=== PATIENT | female | born 1950 | race Caucasian/White ===

== ENCOUNTER 2017-07-18 05:11 | Outpatient (CLI) | payer MEDICARE, MEDICAID ==
[~2017-07-18 05:11] MED LIST: ATOR40TA PO; CEPH500C5 PO; INSU100I13 SQ; LANS15CA47 PO; LANTUS SQ; LIRA0.6P SQ; MICO57CR2 TP; PRED20TA PO; SYN0.0125T PO
== END 2017-07-18 23:59 | disposition home or self-care (01) ==
LOC: DIABETIC 05:11
PROVIDERS: ATTEND Surgery
DX: E11.9 Type 2 diabetes mellitus without complications (principal); E66.01 Morbid (severe) obesity due to excess calories; I10 Essential (primary) hypertension; G47.30 Sleep apnea, unspecified; Z85.3 Personal history of malignant neoplasm of breast
CPT/HCPCS: 97802

== ENCOUNTER 2019-03-03 17:01 | Emergency (ER) | payer MEDICARE, MEDICAID ==
[~2019-03-03] VITALS: Ht 157.5 cm; Wt 67.3 kg
[~2019-03-03 17:01] MED LIST changes: -CEPH500C5 PO
[2019-03-03 18:08] LABS: BASOPHILS % (AUTO) 0.7 % (0-1); EOSINOPHILS # (AUTO) 0.1 X10'3 (0-0.9); EOSINOPHILS % (AUTO) 2.6 % (0-6); HEMOGLOBIN 13.1 g/dl (12.0-16.0); LYMPHOCYTES # (AUTO) 1.8 X10'3 (1.1-4.8); LYMPHOCYTES % (AUTO) 35.9 % (21-51); MEAN CORPUSCULAR HEMOGLOBIN 29.3 PG (27.0-31.0); MEAN CORPUSCULAR HGB CONC 34.6 g/dL (33.0-36.5); MEAN CORPUSCULAR VOLUME 84.9 FL (78-98); MEAN PLATELET VOLUME 8.7 FL (7.4-10.4); MONOCYTES # (AUTO) 0.3 X10'3 (0-0.9); MONOCYTES % (AUTO) 6.4 % (2-12); NEUTROPHILS # (AUTO) 2.7 X10'3 (1.8-7.7); NEUTROPHILS % (AUTO) 54.4 % (42-75); PLATELET COUNT 121 X10'3 (140-440); RED BLOOD COUNT 4.47 X10'6 (4.20-5.60); RED CELL DISTRIBUTION WIDTH 12.9 % (11.5-14.5); WHITE BLOOD COUNT 4.9 X10'3 (4.5-11.0)
[2019-03-03 18:27] LABS: ALANINE AMINOTRANSFERASE 18 U/L (12-78); ALBUMIN 3.6 G/DL (3.4-5.0); ALBUMIN/GLOBULIN RATIO 1.2 (1.1-1.5); ALKALINE PHOSPHATASE 81 IU/L (46-116); ANION GAP 7 (8-16); ASPARTATE AMINO TRANSFERASE 20 U/L (10-37); BILIRUBIN,TOTAL 0.7 MG/DL (0.1-1.0); BLOOD UREA NITROGEN 15 MG/DL (7-18); CALCIUM 8.4 MG/DL (8.5-10.1); CHLORIDE 108 MMOL/L (99-107); GLUCOSE 130 MG/DL (70-104); POTASSIUM 3.5 MMOL/L (3.5-5.1); SODIUM 142 MMOL/L (135-145); TOTAL CARBON DIOXIDE 27.2 MMOL/L (24-32); TOTAL PROTEIN 6.7 G/DL (6.4-8.2); eGFR > 90 ML/MIN
[2019-03-03 18:55] LABS: CLARITY,URINE CLEAR (Clear); COLOR,URINE YELLOW (Yellow); GLUCOSE, URINE NEGATIVE (Neg); KETONES,URINE NEGATIVE (Neg); LEUKOCYTE ESTERASE ,URINE TRACE (Neg); NITRITES, URINE NEGATIVE (Neg); OCCULT BLOOD,URINE NEGATIVE (Neg); PROTEIN,URINE NEGATIVE (Neg); UROBILINOGEN,URINE 0.2 E.U/dL (0.2-1.0)
[2019-03-03 19:01] LABS: UA COLLECTION TYPE CLN CATCH MIDSTREAM
[2019-03-03 19:02] LABS: BACTERIA,URINE FEW /HPF (Neg); RBC,URINE NONE SEEN /HPF (0-2); SQUAMOUS EPITHELIAL CELL,UR FEW /LPF (FEW); WBC,URINE 0-4 /HPF (0-4)
--- NOTE | 2019-03-03 19:06 | NUR ---
PATIENT STATES THAT SHE HAS SOME POSTERIOR LEFT SHOULDER PAIN THAT FEELS BETTER WHEN IT IS MASSAGED.
--- NOTE | 2019-03-03 19:48 | NUR ---
DR PEREZ DISCUSSED DISCHARGE WITH PATIENT IN MY PRESCENSE: ALL TESTS, ETC WNL. PATIENT WILL FOLLOW UP WITH RAMON LESTER AND DR AMARO FOR FURTHER WORKUP. STATED THAT HE HAD SYMPTOMS SIMILAR TO HERS AND "THEY TOOK MY GALLBLADDER OUT AND THEN i HAD A HEART ATTACK."
[2019-03-03 19:51] VITALS: BP 148/72
== END 2019-03-03 19:55 | disposition home or self-care (01) ==
LOC: ER 17:01
DX: R07.89 Other chest pain (principal); I10 Essential (primary) hypertension; K21.9 Gastro-esophageal reflux disease without esophagitis; E11.42 Type 2 diabetes mellitus with diabetic polyneuropathy; Z85.3 Personal history of malignant neoplasm of breast; Z90.710 Acquired absence of both cervix and uterus; Z90.89 Acquired absence of other organs; Z88.2 Allergy status to sulfonamides; Z79.4 Long term (current) use of insulin; Z79.899 Other long term (current) drug therapy
CPT/HCPCS: 36415; 71045; 80053; 81001; 83735; 83880; 84484; 85025; 87088; 93005; 99284

== ENCOUNTER 2019-07-09 13:11 | Outpatient (CLI) | payer MEDICARE, MEDICAID ==
[2019-07-09 15:02] LABS: BASOPHILS % (AUTO) 0.6 % (0-1); EOSINOPHILS # (AUTO) 0.2 X10'3 (0-0.9); EOSINOPHILS % (AUTO) 3.1 % (0-6); HEMATOCRIT 41.5 % (35.0-45.0); LYMPHOCYTES % (AUTO) 38.1 % (21-51); MEAN CORPUSCULAR HGB CONC 33.8 g/dL (33.0-36.5); MEAN PLATELET VOLUME 9.2 FL (7.4-10.4); MONOCYTES # (AUTO) 0.3 X10'3 (0-0.9); MONOCYTES % (AUTO) 5.8 % (2-12); NEUTROPHILS # (AUTO) 2.8 X10'3 (1.8-7.7); NEUTROPHILS % (AUTO) 52.4 % (42-75); PLATELET COUNT 141 X10'3 (140-440); WHITE BLOOD COUNT 5.4 X10'3 (4.5-11.0)
[2019-07-09 15:24] LABS: % IRON SATURATION 24 % (11-46); IRON 57 UG/DL (49-151); TOTAL IRON BINDING CAPACITY 242 UG/DL (259-388)
[2019-07-09 15:34] LABS: ALANINE AMINOTRANSFERASE 19 U/L (12-78); ALBUMIN/GLOBULIN RATIO 1.3 (1.1-1.5); ALKALINE PHOSPHATASE 76 IU/L (46-116); ANION GAP 6 (8-16); ASPARTATE AMINO TRANSFERASE 25 U/L (10-37); BILIRUBIN,TOTAL 0.6 MG/DL (0.1-1.0); BLOOD UREA NITROGEN 11 MG/DL (7-18); BUN/CREATININE RATIO 25.6 (6.6-38.0); CALCIUM 8.8 MG/DL (8.5-10.1); CHLORIDE 106 MMOL/L (99-107); CHOL/HDL RATIO 4.6 (0.00-4.99); CHOLESTEROL 244 MG/DL (0-200); CREATININE 0.43 MG/DL (0.40-0.90); GLUCOSE 90 MG/DL (70-104); HDL CHOLESTEROL 53 MG/DL (35-60); LDL CHOLESTEROL 165 MG/DL (50-100); POTASSIUM 3.9 MMOL/L (3.5-5.1); SODIUM 142 MMOL/L (135-145); TOTAL CARBON DIOXIDE 29.7 MMOL/L (24-32); TOTAL PROTEIN 7.1 G/DL (6.4-8.2); TRIGLYCERIDES 149 MG/DL (20-135); eGFR > 90 ML/MIN
[2019-07-10] MEDS ORDERED: MULT-1085 PO (06:22)
[2019-07-10] MEDS ORDERED: OMEP40CA13 (06:22)
[2019-07-10] MEDS ORDERED: BROM3DRO (06:22)
[2019-07-10] MEDS ORDERED: LEVO150T8 (06:22)
[2019-07-10] MEDS ORDERED: ASPI-1130 (06:22)
[2019-07-11 08:10] LABS: TRANSFERRIN 197 mg/dL (200-370); VITAMIN D, 25-HYDROXY 24.4 ng/mL (30.0-100.0)
== END 2019-07-09 23:59 | disposition home or self-care (01) ==
LOC: LAB 13:11
PROVIDERS: ATTEND Surgery
DX: Z12.31 Encounter for screening mammogram for malignant neoplasm of breast (principal); K90.9 Intestinal malabsorption, unspecified; D52.9 Folate deficiency anemia, unspecified; E51.9 Thiamine deficiency, unspecified; D51.0 Vitamin B12 deficiency anemia due to intrinsic factor deficiency; E61.1 Iron deficiency; E79.0 Hyperuricemia without signs of inflammatory arthritis and tophaceous disease; E78.5 Hyperlipidemia, unspecified; E55.9 Vitamin D deficiency, unspecified; R73.09 Other abnormal glucose; Z13.0 Encounter for screening for diseases of the blood and blood-forming organs and certain disorders involving the immune mechanism; Z13.220 Encounter for screening for lipoid disorders; Z98.84 Bariatric surgery status; Z13.1 Encounter for screening for diabetes mellitus
CPT/HCPCS: 36415; 80053; 80061; 82306; 82607; 82746; 83540; 83550; 84466; 85025

== ENCOUNTER 2019-07-10 05:53 | Day surgery (SDC) | payer MEDICARE, MEDICAID ==
[2019-07-09 15:15] LABS: PARTIAL THROMBOPLASTIN TIME 26 SECONDS (22-32)
[~2019-07-10] VITALS: Ht 157.5 cm; Wt 67.1 kg
[2019-07-10] VITALS (11 sets, daily range): BP systolic 148–178; BP diastolic 63–78
[2019-07-10] MEDS ORDERED: diphenhydrAMINE 25mg capsule PO PRN (06:10)
[2019-07-10] MEDS ORDERED: normal saline 1000ml 1,000 ML IV SCH (06:10)
[2019-07-10] MEDS ORDERED: LORazepam 0.5 MG tablet PO PRN (06:10)
--- NOTE | 2019-07-10 06:16 | NUR ---
Attempted to call MD. [facility] placed me on hold, then line disconnected. Attempted second call back, waiting to speak with MD.
[2019-07-10] MEDS ORDERED: MULT-1085 PO (06:22)
[2019-07-10] MEDS ORDERED: OMEP40CA13 (06:22)
[2019-07-10] MEDS ORDERED: LEVO150T8 (06:22)
[2019-07-10] MEDS ORDERED: BROM3DRO (06:22)
[2019-07-10] MEDS ORDERED: ASPI-1130 (06:22)
--- NOTE | 2019-07-10 07:10 | NUR ---
returned call, informed him of pt bilateral mastectomy, pt concerns of prior lymphedema. states "we will go in through the groin, no radial approach".
[2019-07-10] MEDS ORDERED: LIDOcaine 1% (10mg/ml)w/preservative injection 20ml MDV ONE (07:34)
[2019-07-10] MEDS ORDERED: heparin 1,000unit/ml 10ml vial 10 ML ONE (07:34)
[2019-07-10] MEDS ORDERED: nitroGLYCERIN-Tridil 50MG/D5W 250 ML IV ONE (07:34)
[2019-07-10] MEDS ORDERED: verapamil 2.5 mg/ml inj IV ONE (07:34)
[2019-07-10] MEDS ORDERED: midazolam 2 mg/2 ml injection ONE (07:35)
[2019-07-10] MEDS ORDERED: iohexol 350MG/ML 100ml bottle IV ONE (07:35)
[2019-07-10] MEDS ORDERED: iohexol 350 MG/ML 50ML vial IV ONE (07:35)
[2019-07-10] MEDS ORDERED: fentaNYL/PF 50MCG/1 ML 2ML syringe ONE (07:36)
--- NOTE | 2019-07-10 08:56 | NUR ---
MD Rico at bedside. assessed groin, ordered to hold pressure to rt groin for 15 min, if indications of bleeding are apparent a fem stop may be placed. MD ordered Tylenol for pain. After 15 min of pressure rt groin appears soft, no hematoma, dressing remains CD&I. Pt vs are stable as charted. pt notes pain on her rt groin, 2/10 in intensity. Pain medication being administered as ordered.
[2019-07-10] MEDS ORDERED: acetaminophen 325mg tablet PO PRN (09:30)
--- NOTE | 2019-07-10 09:30 | NUR ---
Reassessed pt pain, pt verbalized 0/10 pian. Pt resting comfortably, will continue to monitor.
--- NOTE | 2019-07-10 10:00 | NUR ---
pt ate 100% of breakfast tray and 250ml fluid
--- NOTE | 2019-07-10 11:00 | NUR ---
pt complaint of pain in her lower back radiating from right to left side. Drsg to rt groin remains CD&I, no s/s of bleeding, surrounding tissue soft. Pt was placed on bedpan, voided x1. Pt notes mild relief of pain with adjustment of position. Will continue to monitor.
--- NOTE | 2019-07-10 12:10 | NUR ---
pt ate 50% of additional lunch tray, 250ml fluids. Will continue to monitor.
--- NOTE | 2019-07-10 12:40 | NUR ---
pt requesting to sit up in bed. 30% lift in the head of the bed was provided. pt groin site is stable, Drsg CD&I, vs stable as charted. will continue to monitor.
== END 2019-07-10 14:00 | disposition home or self-care (01) ==
LOC: SSTAY O 05:53
PROVIDERS: ATTEND Internal Medicine Cardiovascular Disease
DX: R94.39 Abnormal result of other cardiovascular function study (principal); I25.119 Atherosclerotic heart disease of native coronary artery with unspecified angina pectoris; E78.5 Hyperlipidemia, unspecified; G47.33 Obstructive sleep apnea (adult) (pediatric); E03.9 Hypothyroidism, unspecified; F32.9 Major depressive disorder, single episode, unspecified; E11.40 Type 2 diabetes mellitus with diabetic neuropathy, unspecified; K21.9 Gastro-esophageal reflux disease without esophagitis; Z85.3 Personal history of malignant neoplasm of breast; Z79.82 Long term (current) use of aspirin; Z79.899 Other long term (current) drug therapy; Z98.890 Other specified postprocedural states; Z88.8 Allergy status to other drugs, medicaments and biological substances; Z91.09 Other allergy status, other than to drugs and biological substances; Z79.01 Long term (current) use of anticoagulants
CPT/HCPCS: 36415; 85610; 85730; 93005; 93458; 99152; 99153; C1769; C1894; J1644; J2001; J2250; J3010; J7030; Q0163; Q9967; A4620; A5120; A6258; C1760; J3490

== ENCOUNTER 2020-01-17 07:09 | Outpatient (CLI) | payer MEDICARE, MEDICAID ==
[2020-01-17] VITALS (22 sets, daily range): BP systolic 125–174; BP diastolic 66–104
[~2020-01-17 07:09] MED LIST changes: +ASPI-1130; -ATOR40TA PO; +BROM3DRO; -INSU100I13 SQ; -LANS15CA47 PO; -LANTUS SQ; +LEVO150T8; -LIRA0.6P SQ; -MICO57CR2 TP; +MULT-1085 PO; +OMEP40CA13; -PRED20TA PO; -SYN0.0125T PO
== END 2020-01-17 23:59 | disposition home or self-care (01) ==
LOC: CARD DIAG 07:09
PROVIDERS: ATTEND Internal Medicine Cardiovascular Disease
DX: R42 Dizziness and giddiness (principal)
CPT/HCPCS: 93660

== ENCOUNTER 2020-04-25 06:31 | Emergency (ER) | payer MEDICARE, MEDICAID ==
[~2020-04-25] VITALS: Ht 152.4 cm; Wt 69.0 kg
[~2020-04-25 06:31] MED LIST changes: -ASPI-1130; +ASPI-1397
[2020-04-25 07:33] VITALS: BP 155/57
[2020-04-25 07:40] LABS: BASOPHILS % (AUTO) 0.5 % (0-1); EOSINOPHILS # (AUTO) 0.2 X10'3 (0-0.9); EOSINOPHILS % (AUTO) 4.6 % (0-6); HEMATOCRIT 38.4 % (35.0-45.0); HEMOGLOBIN 12.8 g/dl (12.0-16.0); LYMPHOCYTES # (AUTO) 1.5 X10'3 (1.1-4.8); LYMPHOCYTES % (AUTO) 37.7 % (21-51); MEAN CORPUSCULAR HGB CONC 33.4 g/dL (33.0-36.5); MEAN PLATELET VOLUME 8.6 FL (7.4-10.4); MONOCYTES # (AUTO) 0.3 X10'3 (0-0.9); MONOCYTES % (AUTO) 7.9 % (2-12); NEUTROPHILS % (AUTO) 49.3 % (42-75); PLATELET COUNT 118 X10'3 (140-440); RED BLOOD COUNT 4.57 X10'6 (4.20-5.60); RED CELL DISTRIBUTION WIDTH 13.5 % (11.5-14.5)
[2020-04-25 07:53] LABS: ALANINE AMINOTRANSFERASE 16 U/L (12-78); ALBUMIN 3.5 G/DL (3.4-5.0); ALBUMIN/GLOBULIN RATIO 1.1 (1.1-1.5); ALKALINE PHOSPHATASE 79 IU/L (46-116); ANION GAP 3 (8-16); ASPARTATE AMINO TRANSFERASE 19 U/L (10-37); BILIRUBIN,TOTAL 0.6 MG/DL (0.1-1.0); BLOOD UREA NITROGEN 9 MG/DL (7-18); CALCIUM 8.3 MG/DL (8.5-10.1); CHLORIDE 106 MMOL/L (99-107); GLUCOSE 115 MG/DL (70-104); POTASSIUM 3.8 MMOL/L (3.5-5.1); SODIUM 138 MMOL/L (135-145); TOTAL CARBON DIOXIDE 29.1 MMOL/L (24-32); TOTAL PROTEIN 6.6 G/DL (6.4-8.2); eGFR > 90 ML/MIN
== END 2020-04-25 08:28 | disposition home or self-care (01) ==
LOC: ER 06:31
DX: R11.0 Nausea (principal); R53.83 Other fatigue; R06.02 Shortness of breath; R60.9 Edema, unspecified; E11.42 Type 2 diabetes mellitus with diabetic polyneuropathy; I48.91 Unspecified atrial fibrillation; I25.10 Atherosclerotic heart disease of native coronary artery without angina pectoris; E78.00 Pure hypercholesterolemia, unspecified; I10 Essential (primary) hypertension; K21.9 Gastro-esophageal reflux disease without esophagitis; E03.9 Hypothyroidism, unspecified; Z85.3 Personal history of malignant neoplasm of breast; Z90.710 Acquired absence of both cervix and uterus; Z90.89 Acquired absence of other organs; Z98.890 Other specified postprocedural states; Z88.2 Allergy status to sulfonamides; Z79.899 Other long term (current) drug therapy
CPT/HCPCS: 36415; 71045; 80053; 83880; 85025; 93005; 99285

== ENCOUNTER 2022-07-06 07:54 | Day surgery (SDC) | payer MEDICARE, MEDICAID ==
[2022-07-05 09:38] LABS: BASOPHILS % (AUTO) 0.7 % (0-1); EOSINOPHILS # (AUTO) 0.2 X10'3 (0-0.9); EOSINOPHILS % (AUTO) 4.1 % (0-6); HEMATOCRIT 41.7 % (35.0-45.0); HEMOGLOBIN 13.7 g/dl (12.0-16.0); LYMPHOCYTES # (AUTO) 1.7 X10'3 (1.1-4.8); LYMPHOCYTES % (AUTO) 33.3 % (21-51); MEAN CORPUSCULAR HEMOGLOBIN 27.9 PG (27.0-31.0); MEAN CORPUSCULAR HGB CONC 32.7 g/dL (33.0-36.5); MEAN CORPUSCULAR VOLUME 85.1 FL (78-98); MEAN PLATELET VOLUME 8.8 FL (7.4-10.4); MONOCYTES # (AUTO) 0.4 X10'3 (0-0.9); MONOCYTES % (AUTO) 8.2 % (2-12); NEUTROPHILS # (AUTO) 2.7 X10'3 (1.8-7.7); NEUTROPHILS % (AUTO) 53.7 % (42-75); PLATELET COUNT 152 X10'3 (140-440); RED CELL DISTRIBUTION WIDTH 13.7 % (11.5-14.5)
[2022-07-05 10:29] LABS: ALBUMIN 3.5 G/DL (3.4-5.0); ANION GAP 10 (8-16); BLOOD UREA NITROGEN 8 MG/DL (7-18); BUN/CREATININE RATIO 14.8 (6.6-38.0); CALCIUM 8.5 MG/DL (8.5-10.1); CHLORIDE 104 MMOL/L (99-107); CREATININE 0.54 MG/DL (0.40-0.90); GLUCOSE 107 MG/DL (70-104); POTASSIUM 4.1 MMOL/L (3.5-5.1); SODIUM 141 MMOL/L (135-145); TOTAL CARBON DIOXIDE 26.7 MMOL/L (24-32); eGFR > 90 ML/MIN
[~2022-07-06] VITALS: Ht 157.5 cm; Wt 76.1 kg
[~2022-07-06 07:54] MED LIST changes: -OMEP40CA13; +OMEP40CA21
[2022-07-06 08:09] VITALS: BP 145/80
[2022-07-06] MEDS ORDERED: normal saline 1000ml 1,000 ML IV SCH (08:10)
[2022-07-06] MEDS ORDERED: amiodarone 150mg/dext, iso-os 100 ML IV ONE (08:10)
[2022-07-06] MEDS ORDERED: LORazepam 0.5 MG tablet PO ONE (08:10)
[2022-07-06] MEDS ORDERED: morphine 10mg/ml inj. IV ONE (08:10)
[2022-07-06] MEDS ORDERED: atropine 0.1mg/ml 10ml syringe IV ONE (08:10)
[2022-07-06] MEDS ORDERED: diphenhydrAMINE 25mg capsule PO ONE (08:10)
[2022-07-06] MEDS ORDERED: MIDAZolam 1mg/ml 10ml vial IV ONE (08:10)
[2022-07-06] MEDS ORDERED: PANT20TA18 PO (09:12)
[2022-07-06] MEDS ORDERED: THYR90TA PO (09:13)
[2022-07-06] MEDS ORDERED: SOTA80TA73 PO (09:13)
[2022-07-06] MEDS ORDERED: DABI150C PO (09:14)
--- NOTE | 2022-07-06 10:00 | NUR ---
Cardioversion cancelled. Patient in normal sinus rhythm. Dr. Rico saw patient bedside and made changes to medications. New prescriptions phoned into [facility] and patient educated on new medication dosages/schedule. Patient to follow up in 1 week for EKG at Dr. Rico's office.
== END 2022-07-06 10:00 | disposition home or self-care (01) ==
LOC: SSTAY O 07:54
PROVIDERS: ATTEND Internal Medicine Cardiovascular Disease
DX: I48.91 Unspecified atrial fibrillation (principal); Z53.8 Procedure and treatment not carried out for other reasons; Z88.2 Allergy status to sulfonamides
CPT/HCPCS: 36415; 80048; 85025; 85610; A4620; J7030

== ENCOUNTER 2022-08-04 12:24 | Observation (INO) | payer MEDICARE, OTHER, MEDICAID ==
[~2022-08-04] VITALS: Ht 157.5 cm; Wt 75.3 kg
[2022-08-04] VITALS (16 sets, daily range): BP systolic 146–181; BP diastolic 61–76
[~2022-08-04 12:24] MED LIST changes: +AMIO200T61 PO; -ASPI-1397; -BROM3DRO; +CETI10TA14 PO; +CHOL20003 PO; +DABI150C PO; -LEVO150T8; +METO-395 PO; -MULT-1085 PO; -OMEP40CA21; +PANT20TA18 PO; +THYR90TA PO; +ceFOXitin 2GM-NS 100mL ADDvant 100 ML IV ONE; +famotidine 20mg tablet PO ONE; +ringers solution, lacted 1,000 ML IV SCH
[2022-08-04 14:38] LABS: BASOPHILS % (AUTO) 0.8 % (0-1); EOSINOPHILS # (AUTO) 0.2 X10'3 (0-0.9); EOSINOPHILS % (AUTO) 3.7 % (0-6); LYMPHOCYTES # (AUTO) 1.7 X10'3 (1.1-4.8); LYMPHOCYTES % (AUTO) 35.4 % (21-51); MEAN CORPUSCULAR HEMOGLOBIN 27.7 PG (27.0-31.0); MEAN PLATELET VOLUME 8.3 FL (7.4-10.4); MONOCYTES # (AUTO) 0.4 X10'3 (0-0.9); MONOCYTES % (AUTO) 9.5 % (2-12); NEUTROPHILS # (AUTO) 2.4 X10'3 (1.8-7.7); NEUTROPHILS % (AUTO) 50.6 % (42-75); PRE OP HEMATOCRIT 42.7 % (35.0-45.0); PRE OP HEMOGLOBIN 14.1 g/dL (12.0-16.0); PRE OP PLATELET COUNT 147 X10'3 (140-440); RED BLOOD COUNT 5.09 X10'6 (4.20-5.60)
[2022-08-04 15:17] LABS: CLARITY,URINE CLEAR (Clear); COLOR,URINE YELLOW (Yellow); GLUCOSE, URINE NEGATIVE (Neg); KETONES,URINE NEGATIVE (Neg); LEUKOCYTE ESTERASE ,URINE TRACE (Neg); NITRITES, URINE NEGATIVE (Neg); OCCULT BLOOD,URINE NEGATIVE (Neg); PH,URINE 6.5 (4.8-8.0); PROTEIN,URINE NEGATIVE (Neg); UROBILINOGEN,URINE 0.2 E.U/dL (0.2-1.0)
[2022-08-04 15:21] LABS: ALBUMIN 3.8 G/DL (3.4-5.0); ALBUMIN/GLOBULIN RATIO 1.1 (1.1-1.5); ALKALINE PHOSPHATASE 134 IU/L (46-116); BLOOD UREA NITROGEN 10 MG/DL (7-18); BUN/CREATININE RATIO 18.5 (6.6-38.0); CHLORIDE 102 MMOL/L (99-107); CREATININE 0.54 MG/DL (0.40-0.90); PRE OP ALT 21 U/L (30-65); PRE OP ANION GAP 11 (8-16); PRE OP AST 29 U/L (10-37); PRE OP BILIRUB, TOTAL 0.8 MG/DL (0.0-1.0); PRE OP GLUCOSE 90 MG/DL (70-104); PRE OP SODIUM 139 MMOL/L (135-145); TOTAL CARBON DIOXIDE 26.3 MMOL/L (24-32); TOTAL PROTEIN 7.4 G/DL (6.4-8.2); eGFR > 90 ML/MIN
[2022-08-04 15:35] LABS: UA COLLECTION TYPE VOIDED
[2022-08-04 15:36] LABS: BACTERIA,URINE NONE SEEN /HPF (Neg); RBC,URINE NONE SEEN /HPF (0-2); SQUAMOUS EPITHELIAL CELL,UR FEW /LPF (FEW); TRANSITIONAL EPI CELLS,URINE FEW /HPF; WBC,URINE 0-4 /HPF (0-4)
[2022-08-04 15:37] LABS: STARCH,URINE MODERATE /HPF (NEGATIVE)
[2022-08-04] MEDS ORDERED: ringers solution, lacted 1,000 ML IV SCH (15:40)
[2022-08-04] MEDS ORDERED: HYDROmorphone/PF 0.2 MG/ML SYRINGE IV PRN (15:40)
[2022-08-04] MEDS ORDERED: morphine 2 MG/ML inj. syringe IV PRN (15:40)
[2022-08-04] MEDS ORDERED: ondansetron/PF 4mg/2ml inj IV PRN ×2 (15:40→20:25)
[2022-08-04] MEDS ORDERED: glycopyrrolate 0.2mg/ml inj ONE (18:40)
[2022-08-04] MEDS ORDERED: sevoflurane 250ml liquid IH ONE (18:40)
[2022-08-04] MEDS ORDERED: fentaNYL/PF 50MCG/1 ML 2ML syringe ONE (18:44)
[2022-08-04] MEDS ORDERED: BUPIVAcaine 0.5% inj/PF 30 ml vial IJ ONE (19:22)
[2022-08-04] MEDS ORDERED: rocuronium 10mg/ml inj IV ONE (19:30)
[2022-08-04] MEDS ORDERED: sugammadex 200mg/2ml injection IV ONE (19:30)
[2022-08-04] MEDS ORDERED: propofol inj 20 ML IV ONE (19:30)
[2022-08-04] MEDS ORDERED: LIDOcaine 2% (20mg/ml) 5ml vial ONE (19:30)
[2022-08-04] MEDS ORDERED: ondansetron/PF 4mg/2ml inj ONE (19:30)
[2022-08-04] MEDS ORDERED: dexamethasone sod phosphate 4mg/ml inj. ONE (19:30)
--- NOTE | 2022-08-04 19:45 | NUR ---
Received from OR via BED, accompanied by Anesthesiologist and report given by Anesthesiologist. PATIENT WAKING UP, c/o OF PAIN see emar, V/S WNL, SCD ON, 20G TO LUE, ABDOMEN LAP SITE CLEAN W/ NO S/S OF COMPLICATIONS
[2022-08-04] MEDS: HYDROmorphone/PF 0.2 MG/ML SYRINGE IV PRN ×2 (20:11→20:37)
[2022-08-04] MEDS ORDERED: labetalol 20mg/4ml (5mg/ml) syringe IV PRN (20:20)
[2022-08-04] MEDS ORDERED: naloxone 0.4 mg/ml inj IV PRN (20:25)
--- NOTE | 2022-08-04 20:31 | NUR ---
Patient in room . I have received report from EDITH MONTEIRO in [facility] and had the opportunity to ask questions and assume patient care.
[2022-08-04] MEDS ORDERED: PANT40TA54 PO (20:41)
--- NOTE | 2022-08-04 20:45 | NUR ---
PATIENTa&ox4, c/o OF PAIN see emar, V/S WNL, SCD ON, 20G TO LUE, ABDOMEN LAP SITE CLEAN W/ NO S/S OF COMPLICATIONS.PATIENT TAKEN TO ROOM WITH ALL BELONGINGS AND HOOKED UP TO MONITORS IN ROOM AND GIVEN CALL LIGHT, REPORT GIVEN TO RN WHO HAS TAKEN OVER PATIENT CARE.
[2022-08-04] MEDS: traMADol 50MG tablet PO PRN (22:58)
[2022-08-04] MEDS ORDERED: metoprolol tartrate 25mg tablet PO ONE (23:30)
[2022-08-05] VITALS: BP 156/71
[2022-08-05 00:35] VITALS: BP 156/71
[2022-08-05 02:00] VITALS: BP 139/98
[2022-08-05] MEDS: traMADol 50MG tablet PO PRN ×3 (04:33→16:24)
[2022-08-05 06:00] VITALS: BP 144/69
--- NOTE | 2022-08-05 06:27 | NUR ---
Problems reprioritized. Patient report given, questions answered & plan of care reviewed with KALPESH MONTEIRO.
--- NOTE | 2022-08-05 06:41 | NUR ---
Patient in room [id number]. I have received report from Estephania and had the opportunity to ask questions and assume patient care.
[2022-08-05] MEDS ORDERED: thyroid, pork 30mg tablet PO SCH (07:00)
[2022-08-05] MEDS ORDERED: cholecalciferol (vitamin D3) 1,000 unit (25mcg) tablet PO SCH (08:00)
[2022-08-05] MEDS ORDERED: metoprolol succinate 25mg (24-HOUR) SR. Tablet PO SCH (08:00)
[2022-08-05] MEDS ORDERED: pantoprazole 40mg Tablet.DR PO SCH (08:00)
[2022-08-05] MEDS ORDERED: amiodarone 200mg tablet PO SCH (08:00)
[2022-08-05] MEDS ORDERED: cetirizine 10mg tablet PO SCH (08:00)
[2022-08-05] MEDS ORDERED: dabigatran 150mg capsule PO SCH (08:00)
[2022-08-05 10:00] VITALS: BP 130/56
== END 2022-08-05 17:20 | disposition home or self-care (01) ==
LOC: PAS 12:24 → SUR 3N 20:26
PROVIDERS: ADMIT Surgery; ATTEND Surgery
DX: K81.0 Acute cholecystitis (principal); K66.0 Peritoneal adhesions (postprocedural) (postinfection); I10 Essential (primary) hypertension; I48.91 Unspecified atrial fibrillation; I25.10 Atherosclerotic heart disease of native coronary artery without angina pectoris; I25.2 Old myocardial infarction; Z86.73 Personal history of transient ischemic attack (TIA), and cerebral infarction without residual deficits; Z90.710 Acquired absence of both cervix and uterus; Z90.13 Acquired absence of bilateral breasts and nipples; Z79.899 Other long term (current) drug therapy
CPT/HCPCS: 36415; 47562; 80053; 81001; 85025; 87081; 96374; 96375; G0378; J0694; J1100; J1170; J2270; J2405; J2704; J3010; J3490; J7120; S0020; A4215; A4618; A6402; A6449; A7000

== ENCOUNTER 2023-05-02 12:53 | Emergency (ER) | payer MEDICARE, MEDICAID ==
[~2023-05-02] VITALS: Ht 157.5 cm; Wt 70.1 kg
[~2023-05-02 12:53] MED LIST changes: +AMI200T PO; -AMIO200T61 PO; -PANT20TA18 PO; +PANT40TA54 PO; -ceFOXitin 2GM-NS 100mL ADDvant 100 ML IV ONE; -famotidine 20mg tablet PO ONE; -ringers solution, lacted 1,000 ML IV SCH
[2023-05-02 13:09] LABS: BASOPHILS # (AUTO) 0.1 X10'3 (0-0.2); BASOPHILS % (AUTO) 0.9 % (0-1); EOSINOPHILS # (AUTO) 0.2 X10'3 (0-0.9); HEMATOCRIT 39.3 % (35.0-45.0); HEMOGLOBIN 12.9 g/dl (12.0-16.0); LYMPHOCYTES # (AUTO) 1.8 X10'3 (1.1-4.8); LYMPHOCYTES % (AUTO) 27.3 % (21-51); MEAN CORPUSCULAR HEMOGLOBIN 28.8 PG (27.0-31.0); MEAN CORPUSCULAR HGB CONC 32.9 g/dL (33.0-36.5); MEAN CORPUSCULAR VOLUME 87.7 FL (78-98); MONOCYTES # (AUTO) 0.5 X10'3 (0-0.9); MONOCYTES % (AUTO) 7.4 % (2-12); NEUTROPHILS # (AUTO) 3.9 X10'3 (1.8-7.7); NEUTROPHILS % (AUTO) 61.4 % (42-75); PLATELET COUNT 147 X10'3 (140-440); RED BLOOD COUNT 4.49 X10'6 (4.20-5.60); RED CELL DISTRIBUTION WIDTH 14.2 % (11.5-14.5); WHITE BLOOD COUNT 6.4 X10'3 (4.5-11.0)
[2023-05-02 13:26] LABS: ALANINE AMINOTRANSFERASE 15 U/L (12-78); ALBUMIN 3.7 G/DL (3.4-5.0); ALKALINE PHOSPHATASE 109 IU/L (46-116); ANION GAP 9 (8-16); ASPARTATE AMINO TRANSFERASE 42 U/L (10-37); BILIRUBIN,TOTAL 0.8 MG/DL (0.1-1.0); BLOOD UREA NITROGEN 11 MG/DL (7-18); BUN/CREATININE RATIO 17.7 (10.0-20.0); CALCIUM 8.8 MG/DL (8.5-10.1); CHLORIDE 103 MMOL/L (99-107); CREATININE 0.62 MG/DL (0.40-0.90); GLUCOSE 156 MG/DL (70-104); SODIUM 137 MMOL/L (135-145); TOTAL CARBON DIOXIDE 25.5 MMOL/L (24-32); TOTAL PROTEIN 7.3 G/DL (6.4-8.2); eGFR > 90 ML/MIN
[2023-05-02 13:32] LABS: PRO BRAIN NATRIURETIC PEPTIDE 570 PG/ML (0-125)
[2023-05-02 13:46] LABS: LIPASE 40 U/L (16-77)
[2023-05-02 13:48] LABS: POTASSIUM 3.3 MMOL/L (3.5-5.1)
[2023-05-02 15:11] VITALS: BP 209/85; PULSE 59; RESP 17; TEMP 97.5; O2SAT 99
[2023-05-02 15:49] LABS: BILIRUBIN,URINE NEGATIVE (Neg); CLARITY,URINE CLEAR (Clear); COLOR,URINE STRAW (Yellow); GLUCOSE, URINE NEGATIVE (Neg); KETONES,URINE NEGATIVE (Neg); LEUKOCYTE ESTERASE ,URINE NEGATIVE (Neg); NITRITES, URINE NEGATIVE (Neg); OCCULT BLOOD,URINE NEGATIVE (Neg); PH,URINE 6.5 (4.8-8.0); PROTEIN,URINE NEGATIVE (Neg); UROBILINOGEN,URINE 0.2 E.U/dL (0.2-1.0)
[2023-05-02 15:54] LABS: UA COLLECTION TYPE VOIDED
== END 2023-05-02 21:41 | disposition left against medical advice (07) ==
LOC: ER 12:54
DX: R07.9 Chest pain, unspecified (principal); Z53.21 Procedure and treatment not carried out due to patient leaving prior to being seen by health care provider
CPT/HCPCS: 36415; 71045; 80053; 81003; 83690; 83880; 84484; 85025; 93005; 99281

== ENCOUNTER 2023-05-10 06:49 | Day surgery (SDC) | payer MEDICARE, MEDICAID ==
[2023-05-09 10:46] LABS: EOSINOPHILS # (AUTO) 0.1 X10'3 (0-0.9); HEMATOCRIT 38.9 % (35.0-45.0); HEMOGLOBIN 12.8 g/dl (12.0-16.0); LYMPHOCYTES # (AUTO) 1.5 X10'3 (1.1-4.8); MEAN CORPUSCULAR HEMOGLOBIN 28.5 PG (27.0-31.0); MONOCYTES # (AUTO) 0.3 X10'3 (0-0.9); NEUTROPHILS # (AUTO) 2.6 X10'3 (1.8-7.7); RED CELL DISTRIBUTION WIDTH 13.9 % (11.5-14.5)
[2023-05-09 10:49] LABS: BASOPHILS % (AUTO) 0.7 % (0-1); EOSINOPHILS % (AUTO) 2.7 % (0-6); LYMPHOCYTES % (AUTO) 32.2 % (21-51); MEAN CORPUSCULAR VOLUME 86.6 FL (78-98); MEAN PLATELET VOLUME 8.7 FL (7.4-10.4); NEUTROPHILS % (AUTO) 57.4 % (42-75); PLATELET COUNT 140 X10'3 (140-440); RED BLOOD COUNT 4.49 X10'6 (4.20-5.60); WHITE BLOOD COUNT 4.6 X10'3 (4.5-11.0)
[2023-05-09 10:54] LABS: PROTHROMBIN TIME 10.8 SECONDS (9.0-12.0)
[2023-05-09 10:56] LABS: ALBUMIN 3.6 G/DL (3.4-5.0); ANION GAP 7 (8-16); BLOOD UREA NITROGEN 9 MG/DL (7-18); BUN/CREATININE RATIO 15.8 (10.0-20.0); CALCIUM 8.6 MG/DL (8.5-10.1); CHLORIDE 106 MMOL/L (99-107); CREATININE 0.57 MG/DL (0.40-0.90); GLUCOSE 112 MG/DL (70-104); POTASSIUM 3.5 MMOL/L (3.5-5.1); SODIUM 142 MMOL/L (135-145); TOTAL CARBON DIOXIDE 29.3 MMOL/L (24-32); eGFR > 90 ML/MIN
[~2023-05-10] VITALS: Ht 157.5 cm; Wt 74.0 kg
[2023-05-10 06:55] VITALS: RESP 14
[2023-05-10] MEDS ORDERED: amiodarone 150mg/dext, iso-os 100 ML IV ONE (07:30)
[2023-05-10] MEDS ORDERED: morphine 10mg/ml inj. IV ONE (07:30)
[2023-05-10] MEDS ORDERED: atropine 0.1mg/ml 10ml syringe IV ONE (07:30)
[2023-05-10] MEDS ORDERED: normal saline 1000ml 1,000 ML IV SCH (07:30)
[2023-05-10] MEDS ORDERED: LORazepam 0.5 MG tablet PO ONE (07:30)
[2023-05-10] MEDS ORDERED: diphenhydrAMINE 25mg capsule PO ONE (07:30)
[2023-05-10] MEDS ORDERED: MIDAZolam 1mg/ml 10ml vial IV ONE (07:30)
--- NOTE | 2023-05-10 08:25 | NUR ---
Procedure cancelled by Dr. Rico. Patient in SR.
== END 2023-05-10 08:25 | disposition home or self-care (01) ==
LOC: SSTAY O 06:49
PROVIDERS: ATTEND Internal Medicine Cardiovascular Disease
DX: I48.0 Paroxysmal atrial fibrillation (principal); Z53.8 Procedure and treatment not carried out for other reasons; I25.10 Atherosclerotic heart disease of native coronary artery without angina pectoris; E78.5 Hyperlipidemia, unspecified; G47.33 Obstructive sleep apnea (adult) (pediatric); E03.9 Hypothyroidism, unspecified; F32.A Depression, unspecified; K21.9 Gastro-esophageal reflux disease without esophagitis; E11.42 Type 2 diabetes mellitus with diabetic polyneuropathy; Z86.73 Personal history of transient ischemic attack (TIA), and cerebral infarction without residual deficits; Z85.3 Personal history of malignant neoplasm of breast; Z98.890 Other specified postprocedural states; Z98.84 Bariatric surgery status; Z88.2 Allergy status to sulfonamides; Z79.899 Other long term (current) drug therapy; Z82.49 Family history of ischemic heart disease and other diseases of the circulatory system
CPT/HCPCS: 36415; 80048; 85025; 85610; 93005; A4620; J7030

== ENCOUNTER 2023-05-27 12:27 | Day surgery (SDC) | payer MEDICARE, MEDICAID ==
[2023-05-26 09:41] LABS: BASOPHILS % (AUTO) 0.8 % (0-1); EOSINOPHILS # (AUTO) 0.2 X10'3 (0-0.9); EOSINOPHILS % (AUTO) 2.9 % (0-6); HEMATOCRIT 42.4 % (35.0-45.0); LYMPHOCYTES # (AUTO) 1.9 X10'3 (1.1-4.8); LYMPHOCYTES % (AUTO) 34.6 % (21-51); MEAN CORPUSCULAR HEMOGLOBIN 28.5 PG (27.0-31.0); MEAN CORPUSCULAR VOLUME 86.3 FL (78-98); MEAN PLATELET VOLUME 8.9 FL (7.4-10.4); MONOCYTES # (AUTO) 0.4 X10'3 (0-0.9); MONOCYTES % (AUTO) 6.6 % (2-12); NEUTROPHILS % (AUTO) 55.1 % (42-75); PLATELET COUNT 159 X10'3 (140-440); RED BLOOD COUNT 4.92 X10'6 (4.20-5.60); RED CELL DISTRIBUTION WIDTH 14.2 % (11.5-14.5); WHITE BLOOD COUNT 5.4 X10'3 (4.5-11.0)
[2023-05-26 09:52] LABS: APTT 24 SECONDS (22-32); PROTHROMBIN TIME 10.5 SECONDS (9.0-12.0)
[2023-05-26 09:59] LABS: ALBUMIN 3.7 G/DL (3.4-5.0); ANION GAP 5 (8-16); BLOOD UREA NITROGEN 13 MG/DL (7-18); BUN/CREATININE RATIO 18.8 (10.0-20.0); CALCIUM 8.6 MG/DL (8.5-10.1); CHLORIDE 104 MMOL/L (99-107); CREATININE 0.69 MG/DL (0.40-0.90); GLUCOSE 117 MG/DL (70-104); POTASSIUM 4.3 MMOL/L (3.5-5.1); PRO BRAIN NATRIURETIC PEPTIDE 169 PG/ML (0-125); SODIUM 138 MMOL/L (135-145); TOTAL CARBON DIOXIDE 28.7 MMOL/L (24-32); eGFR 84 ML/MIN
[~2023-05-27] VITALS: Ht 157.5 cm; Wt 72.3 kg
[2023-05-27] VITALS (9 sets, daily range): BP systolic 115–196; BP diastolic 60–131; PULSE 57–64; RESP 12–14; TEMP 98.3; O2SAT 96–98
[2023-05-27] MEDS ORDERED: cefazolin 2gm/D5W 100mL 100 ML IV ONE (12:35)
[2023-05-27] MEDS ORDERED: MULT-1085 PO (12:42)
[2023-05-27] MEDS ORDERED: proCHLORperazine 10 MG/2 ml inj ONE (14:38)
[2023-05-27] MEDS ORDERED: LIDOcaine 1% w/EPI 1:100,000 inj. MDV 50 ML VIAL ONE (14:38)
[2023-05-27] MEDS ORDERED: vancomycin 1,000mg inj ONE (14:39)
[2023-05-27] MEDS ORDERED: fentaNYL/PF 50MCG/1 ML 2ML syringe ONE (14:39)
[2023-05-27] MEDS ORDERED: midazolam 1 mg/ML 2ml injection ONE (14:39)
[2023-05-27] MEDS ORDERED: HYDROcodone/acetaminophen 5mg/325mg tablet PO PRN (16:50)
[2023-05-27] MEDS ORDERED: HYDROcodone/acetaminophen 10/325mg tab PO PRN (16:50)
[2023-05-27] MEDS ORDERED: vancomycin/NS 1 GM in NS 250 ML IV ONE (17:00)
--- NOTE | 2023-05-27 18:38 | NUR ---
Paged Dr. Rico to notify that patient's PM is not capturing at times and HR 45-47. No new orders at this time.
== END 2023-05-27 19:50 | disposition home or self-care (01) ==
LOC: SSTAY O 12:27
PROVIDERS: ATTEND Internal Medicine Cardiovascular Disease
DX: I49.5 Sick sinus syndrome (principal); I25.10 Atherosclerotic heart disease of native coronary artery without angina pectoris; I48.0 Paroxysmal atrial fibrillation; E78.5 Hyperlipidemia, unspecified; G47.33 Obstructive sleep apnea (adult) (pediatric); E03.9 Hypothyroidism, unspecified; K21.9 Gastro-esophageal reflux disease without esophagitis; E11.42 Type 2 diabetes mellitus with diabetic polyneuropathy; F32.A Depression, unspecified; Z86.73 Personal history of transient ischemic attack (TIA), and cerebral infarction without residual deficits; Z79.899 Other long term (current) drug therapy; Z85.3 Personal history of malignant neoplasm of breast; Z98.84 Bariatric surgery status; Z98.890 Other specified postprocedural states; Z88.2 Allergy status to sulfonamides; Z82.49 Family history of ischemic heart disease and other diseases of the circulatory system
CPT/HCPCS: 33208; 36415; 71046; 80048; 83880; 85025; 85610; 85730; 93005; 99152; 99153; C1785; C1898; J0780; J2250; J3010; J3370; J3490; J7030; A6449